=== PATIENT | male | born 1980 | race Two or more races ===

== ENCOUNTER 2025-05-04 19:16 | Emergency (ER) | payer OTHER ==
[~2025-05-04] VITALS: Ht 172.7 cm; Wt 86.2 kg
[2025-05-04] MEDS ORDERED: LIDOCAINE HCL 1% 10ML VIAL PERCUT ONE (21:30)
[2025-05-04] MEDS ORDERED: TETANUS & DIPHTHERIA TOX,ADULT 0.5 ML VIAL IM ONE (21:30)
[2025-05-04] MEDS ORDERED: CEFTRIAXONE SODIUM 1,000 MG VIAL IM ONE (21:30)
[2025-05-04] MEDS ORDERED: DIPHTH,PERTUSS(ACELL),TET VAC 0.5 ML SYRINGE IM ONE (21:32)
[2025-05-04] MEDS ORDERED: CEFTRIAXONE SODIUM 1,000 MG VIAL ONE (21:32)
[2025-05-04] MEDS ORDERED: DUI500 PO (22:15)
== END 2025-05-04 22:38 ==
LOC: ER 19:16
DX: S61.412A Laceration without foreign body of left hand, initial encounter (principal); W26.0XXA Contact with knife, initial encounter; Y93.89 Activity, other specified; Y92.89 Other specified places as the place of occurrence of the external cause; Y99.8 Other external cause status
CPT/HCPCS: 12002; 90471; 90714; J1670